=== PATIENT | male | born 1975 | race Caucasian/White ===

== ENCOUNTER 2017-08-02 13:14 | Emergency (ER) | payer BC ==
[~2017-08-02] VITALS: Ht 185.4 cm; Wt 113.9 kg
[2017-08-02 13:25] VITALS: Ht 185.4 cm; Wt 113.9 kg
[2017-08-02] MEDS ORDERED: KETOROLAC TROMETHAMINE 30 MG/ML VIAL IV STA (13:57)
[2017-08-02] MEDS ORDERED: ACETAMINOPHEN 500 MG TAB PO STA (13:57)
[2017-08-02] MEDS ORDERED: SODIUM CHLORIDE 0.9% 1000ML 1,000 ML IV ONE (14:00)
--- NOTE | 2017-08-02 14:02 | EMERGENCY ROOM VISIT NOTE ---
History First contact with patient: 13:35 Chief Complaint: FLU LIKE SX Stated Complaint: FLU History of Present Illness The patient is a 42 year old male who presents to the Emergency Room with complaints of flulike symptoms for approximately 1 week. The patient reports a high fever of 103.1F, body aches, headache, eye sensitivity, nausea with 1 episode of vomiting. He denies any sick contacts. He denies any known tick bites, but spends a lot of time outdoors. No significant cough. Bowel movements have been normal. He denies any abdominal pain. He was seen at [facility] earlier this week. A full workup was performed. He was told that this was likely a viral illness and had to run its course. Been trying Tylenol and ibuprofen with minimal relief of his symptoms. Review of Systems 10 system review performed and negative unless noted in HPI or below Past Medical/Surgical History Hypertension Social History Smoking Status: Current Every Day Smoker Alcohol Use: occasionally Marital Status: Housing Status: lives with family Current/Historical Medications Scheduled Citalopram (Citalopram Hydrobromide), 1 TAB PO DAILY Doxycycline Hyclate (Vibramycin), 100 MG PO BID Oxycodone/Acetaminophen 5MG/325MG (Percocet 5MG/325MG), 1 TAB PO QID Scheduled PRN Oxycodone/Acetaminophen 5MG/325MG (Percocet 5MG/325MG), 1-2 TABS PO Q4 PRN for Pain Miscellaneous Medications Acetaminophen (Tylenol), 325 MG PO Lisinopril (Prinivil), 20 MG PO Trazodone Hcl (Trazodone), 100 MG PO Physical Exam Vital Signs Date Time Temp Pulse Resp B/P (MAP) Pulse Ox O2 Delivery O2 Flow Rate FiO2 08/02/17 17:16 84 18 127/67 97 08/02/17 15:08 37.4 88 18 108/53 94 Room Air 08/02/17 13:25 37.8 121 22 140/79 94 Room Air Physical Exam VITALS: Vitals are noted on the nurse's note and reviewed by myself. Vital signs stable. GENERAL: 42-year-old male, acutely ill in appearance SKIN: The skin was without rashes, erythema, edema, or bruising. HEAD: Normocephalic atraumatic. EYES: Pupils equal round and reactive to light and accommodation. Conjunctivae without injection, sclerae without icterus. Extraocular movements intact. NOSE: Patent, turbinates without inflammation or discharge. No sinus tenderness. MOUTH: Mucous membranes slightly dry. Tonsils are not enlarged. Pharynx without erythema or exudate. Uvula midline. Airway patent. Tongue does not deviate. NECK: Supple without nuchal rigidity. No lymphadenopathy. Cervical spine is nontender. No JVD. HEART: Tachycardic, regular rhythm without murmurs gallops or rubs. LUNGS: Clear to auscultation bilaterally without wheezes, rales or rhonchi. No accessory muscle use. ABDOMEN: Positive bowel sounds x 4.Soft, nontender, without organomegaly. No guarding or rebound tenderness. MUSCULOSKELETAL: No muscle atrophy, erythema, or edema noted. Strength 5/5 throughout. NEURO: Patient was alert and oriented to person place and time. Normal sensation to touch. No focal neurological deficits. Medical Decision & Procedures ER Provider Diagnostic Interpretation: Chest x-ray IMPRESSION: Minimal parenchymal infiltrate left base. The above report was generated using voice recognition software. It may contain grammatical, syntax or spelling errors. Electronically signed by: Con Hastings M.D. 08/02/2017 2:21 PM Dictated Date/Time: 08/02/2017 2:[address] head without contrast Patient Name: OZZY PEARL Unit Number: [id number] Dictated: 08/02/171609 Transcribed: 08/02/17 161 MS Printed Date/Time: [~ rep prt dt]/[~ rep prt tm] [~ rep ct labl] - [~ rep ct ivnm] [facility] [place] [address] Dictated: 08/02/171609 Transcribed: 08/02/17 1610 MS Printed Date/Time: [~ rep prt dt]/[~ rep prt tm] [~ rep ct labl] - [~ rep ct ivnm] Impression: No acute intracranial abnormality. The above report was generated using voice recognition software. It may contain grammatical, syntax or spelling errors. Electronically signed by: Con Hastings M.D. 08/02/2017 4:10 PM Dictated Date/Time: 08/02/2017 4:10 PM The status of this report is Signed. Draft = Not yet reviewed or approved by Radiologist. Signed = Reviewed and approved by Radiologist. <AttendingPhy></AttendingPhy> <FamilyPhy>Preet Cox PA-C</FamilyPhy> < PrimaryPhy>Preet Cox PA-C</PrimaryPhy> <UnitNumber>[id number]</ UnitNumber> <VisitNumber>[id number]</VisitNumber> <PatientName>OZZY PEARL</ PatientName> <DateOfBirth>1975</DateOfBirth> <Location>C.[facility]</Location> < ServiceDate>08/02/17</ServiceDate> <MNE>ESINDI</MNE> <OrderingPhy>Keesha Chapin PA-C</OrderingPhy> <OrderingPhyMNE>f rep ord dr coulter</OrderingPhyMNE> < DictatingPhyMNE>f rep dict dr coulter</DictatingPhyMNE> <CCListMNE>f rep ct mne</ CCListMNE> <AdmittingPhyMNE>f pt admit dr coulter</AdmittingPhyMNE> <AttendingPhyMNE >f pt attend dr coulter</AttendingPhyMNE> <ConsultingPhyMNE>f pt consult dr coulter</ConsultingPhyMNE> <FamilyPhyMNE>f pt fam dr coulter</FamilyPhyMNE> <OtherPhyMNE>f pt other dr coulter</OtherPhyMNE> < PrimaryPhyMNE>f pt prim care dr coulter</PrimaryPhyMNE> <ReferringPhyMNE>f pt referring dr coulter</ReferringPhyMNE> Laboratory Results 08/02/17 14:18 Red Blood Count 4.94, Mean Corpuscular Volume 83.4, Mean Corpuscular Hemoglobin 30.0, Mean Corpuscular Hemoglobin Concent 35.9, Mean Platelet Volume 11.7, Neutrophils (%) (Auto) 60.4, Lymphocytes (%) (Auto) 24.5, Monocytes (%) (Auto) 9.3, Eosinophils (%) (Auto) 3.9, Basophils (%) (Auto) 1.4, Neutrophils # (Auto) 2.66, Lymphocytes # (Auto) 1.08, Monocytes # (Auto) 0.41, Eosinophils # (Auto) 0.17, Basophils # (Auto) 0.06 08/02/17 14:18 Test 08/02/17 14:18 08/02/17 14:30 White Blood Count 4.40 K/uL (4.8-10.8) Red Blood Count 4.94 M/uL (4.7-6.1) Hemoglobin 14.8 g/dL (14.0-18.0) Hematocrit 41.2 % (42-52) Mean Corpuscular Volume 83.4 fL (80-100) Mean Corpuscular Hemoglobin 30.0 pg (25-34) Mean Corpuscular Hemoglobin Concent 35.9 g/dl (32-36) Platelet Count 158 K/uL (130-400) Mean Platelet Volume 11.7 fL (7.4-10.4) Neutrophils (%) (Auto) 60.4 % Lymphocytes (%) (Auto) 24.5 % Monocytes (%) (Auto) 9.3 % Eosinophils (%) (Auto) 3.9 % Basophils (%) (Auto) 1.4 % Neutrophils # (Auto) 2.66 K/uL (1.4-6.5) Lymphocytes # (Auto) 1.08 K/uL (1.2-3.4) Monocytes # (Auto) 0.41 K/uL (0.11-0.59) Eosinophils # (Auto) 0.17 K/uL (0-0.5) Basophils # (Auto) 0.06 K/uL (0-0.2) RDW Standard Deviation 38.5 fL (36.4-46.3) RDW Coefficient of Variation 12.8 % (11.5-14.5) Immature Granulocyte % (Auto) 0.5 % Immature Granulocyte # (Auto) 0.02 K/uL (0.00-0.02) Anion Gap 7.0 mmol/L (3-11) Est Creatinine Clear Calc Drug Dose 111.3 ml/min Estimated GFR () 92.1 Estimated GFR (Non- 79.5 BUN/Creatinine Ratio 9.3 (10-20) Calcium Level 8.9 mg/dl (8.5-10.1) Total Bilirubin 0.6 mg/dl (0.2-1) Aspartate Amino Transf (AST/SGOT) 61 U/L (15-37) Alanine Aminotransferase (ALT/SGPT) 142 U/L (12-78) Alkaline Phosphatase 71 U/L (45-117) Total Protein 6.9 gm/dl (6.4-8.2) Albumin 3.4 gm/dl (3.4-5.0) Globulin 3.5 gm/dl (2.5-4.0) Albumin/Globulin Ratio 1.0 (0.9-2) Lyme Disease IgG Antibody NEG (NEG) Influenza Type A (RT-PCR) Neg for Influ A (NEG) Influenza Type B (RT-PCR) Neg for Influ B (NEG) Medications Administered Medications (Trade) Dose Ordered Sig/Patti Route Start Time Stop Time Status Last Admin Dose Admin Sodium Chloride 1,000 ml @ 999 mls/hr Q1H1M ONCE IV 08/02/17 14:00 08/02/17 15:00 DC 08/02/17 14:25 999 MLS/HR Morphine Sulfate (MoRPHine SULFATE INJ) 4 mg Q1H PRN IV 08/02/17 14:00 08/02/17 17:50 DC 08/02/17 15:53 4 MG Acetaminophen (Tylenol Tab) 1,000 mg NOW STAT PO 08/02/17 13:57 08/02/17 14:06 DC 08/02/17 14:26 1,000 MG Ketorolac Tromethamine (Toradol Inj) 30 mg NOW STAT IV 08/02/17 13:57 08/02/17 14:06 DC 08/02/17 14:26 30 MG Ceftriaxone Sodium 1 gm/ Dextrose 50 ml @ 100 mls/hr ONE STAT IV 08/02/17 15:43 08/02/17 16:12 DC 08/02/17 16:20 100 MLS/HR Doxycycline Hyclate (Vibramycin Cap) 100 mg NOW STAT PO 08/02/17 15:43 08/02/17 15:44 DC 08/02/17 15:50 100 MG ED Course Patient was seen and examined Vital signs including blood pressure were reviewed medications list was verified with patient Labs were obtained, and a saline lock was established The patient was medicated with Toradol, morphine and Tylenol. He was hydrated with 1 L of normal saline. The patient was reassessed. He was feeling slightly better. We discussed his workup. He voiced understanding. The case was also discussed with my supervising physician A CT of the head was performed and reviewed The patient was given 1 g of ceftriaxone IV. He was also given 1 dose of doxycycline. I reviewed discharge instructions the patient. They voiced understanding and had no further questions. Medical Decision Differential diagnosis: Bronchitis, pneumonia, strep pharyngitis, viral pharyngitis, influenza , Lyme disease, ehrlichiosis, other viral syndrome This patient is a 42-year-old male that presents to emergency department with severe headache, body aches and fever. On exam, he was uncomfortable in appearance. He was not toxic. There are no signs of nuchal rigidity. His workup reveals a positive Lyme screen. The patient reports spending a lot of time outdoors. He did not have any known tick bites. I believe he likely has disseminated Lyme disease. The patient's vital signs are stable. I believe he is stable to be discharged home. The patient was given 1 dose of ceftriaxone in the emergency department. He was given a 21 day course of doxycycline, and instructed to follow-up with his primary care physician within the next 2 days for recheck. He agrees to return to the emergency department with any new, worsening or concerning symptoms. Of note, the patient also possibly had a left infiltrate per x-ray. He did not have any significant productive cough. Doxycycline should be adequate coverage for mild community-acquired pneumonia. This chart was completed in part utilizing [employer] Speech Voice Recognition software. Attempts were made to minimize the grammatical errors, random word insertions, pronoun errors and incomplete sentences. Any formal questions or concerns about the content, text or information contained within the body of this dictation should be directly addressed to the provider for clarification. Medication Reconcilliation Current Medication List: was personally reviewed by me Blood Pressure Screening Patient's blood pressure: Normal blood pressure Impression Primary Impression: Disseminated Lyme disease Departure Information Dispostion Home / Self-Care Condition FAIR Prescriptions Oxycodone/Acetaminophen 5MG/325MG (PERCOCET 5MG/325MG) Tab 1-2 TABS PO Q4 Y for Pain, #15 TAB For Initial Treatment Prov: Keesha Chapin PA-C 08/02/17 Doxycycline Hyclate (VIBRAMYCIN) 100 Mg Cap 100 MG PO BID for 21 Days, #42 CAP Prov: Keesha Chapin PA-C 08/02/17 Referrals Preet Cox PA-C (PCP) Patient Instructions ED Lyme Disease, My [facility] Additional Instructions You were evaluated in the emergency department for body aches and fever. Thisw is likely due to Lyme disease. Please take the entire course of antibiotics. Please take this medication with food. It is very important to have close follow-up with your primary care physician within the next 2-3 days for recheck. Ibuprofen 600 mg every 6 hours Percocet 1-2 tabs every 4 hours for severe pain. Do not drink alcohol or drive while taking this medication. This may be taken with ibuprofen, but avoid Tylenol. Please do not hesitate to return to the emergency department with a new, worsening or concerning symptoms
--- NOTE | 2017-08-02 14:22 | DIAGNOSTIC IMAGING REPORT ---
CHEST ONE VIEW PORTABLE CLINICAL HISTORY: fever dyspnea COMPARISON STUDY: No previous studies for comparison. FINDINGS: Minimal parenchymal infiltrate left base. Lungs otherwise are clear. Diaphragms are smooth. Costophrenic angles are sharp. IMPRESSION: Minimal parenchymal infiltrate left base. The above report was generated using voice recognition software. It may contain grammatical, syntax or spelling errors. Electronically signed by: Con Hastings M.D. 08/02/2017 2:21 PM Dictated Date/Time: 08/02/2017 2:20 PM
[2017-08-02] MEDS: MoRPHine SULFATE 4 MG/ML 1 ML CARP\\VIAL IV PRN ×2 (14:28→15:53)
[2017-08-02 14:39] LABS: BASO % 1.4 %; BASO ABS # 0.06 K/uL (0-0.2); COMPLETE YES; EOS % 3.9 %; HEMATOCRIT 41.2 % (42-52); IG% 0.5 %; LYMPH % 24.5 %; LYMPH ABS # 1.08 K/uL (1.2-3.4); MEAN CELL VOLUME 83.4 fL (80-100); MEAN CORPUSCULAR HGB CONC 35.9 g/dl (32-36); MEAN PLATELET VOLUME 11.7 fL (7.4-10.4); MONO % 9.3 %; NEUT % 60.4 %; PLATELET COUNT 158 K/uL (130-400); RED BLOOD COUNT 4.94 M/uL (4.7-6.1)
[2017-08-02 14:54] LABS: BUN/CREATININE RATIO 9.3 (10-20); CALCIUM 8.9 mg/dl (8.5-10.1); CREATININE 1.12 mg/dl (0.60-1.40); POTASSIUM 3.6 mmol/L (3.5-5.1)
[2017-08-02 15:08] VITALS: TEMP 37.4
[2017-08-02] MEDS ORDERED: OXYC-57 PO ×2 (15:09→16:34)
[2017-08-02] MEDS ORDERED: CITA40TA4 PO (15:09)
[2017-08-02] MEDS ORDERED: TRAZ100T29 PO (15:09)
[2017-08-02] MEDS ORDERED: ACET-1311 PO (15:09)
[2017-08-02] MEDS ORDERED: LISI20TA3 PO (15:09)
[2017-08-02 15:28] LABS: LYME DISEASE AB IGG NEG (NEG)
[2017-08-02 15:30] LABS: LYME DISEASE AB IGM POS (NEG)
[2017-08-02 15:34] LABS: INFLUENZA A PCR Neg for Influ A (NEG); INFLUENZA B PCR Neg for Influ B (NEG)
[2017-08-02] MEDS ORDERED: CEFTRIAXONE SOD INJ 1 GM in DEXTROSE 5% ADD-VANTAGE 50ML 50 ML IV STA (15:43)
[2017-08-02] MEDS ORDERED: DOXYCYCLINE HYCLATE 100 MG CAP PO STA (15:43)
--- NOTE | 2017-08-02 16:11 | DIAGNOSTIC IMAGING REPORT ---
HEAD WITHOUT CONTRAST (CT) CT DOSE: 823.94 mGycm HISTORY: Pain. Mental status change. [place] eye pain fever TECHNIQUE: Multiaxial CT images of the head were performed without the use of intravenous contrast. A dose lowering technique was utilized adhering to the principles of ALARA. Comparison: None. Findings: The paranasal sinuses and mastoid air cells are clear. The calvarium and skull base are intact. The ventricles and sulci are within normal limits. There is no mass, hematoma, midline shift, or acute infarct. Impression: No acute intracranial abnormality. The above report was generated using voice recognition software. It may contain grammatical, syntax or spelling errors. Electronically signed by: Con Hastings M.D. 08/02/2017 4:10 PM Dictated Date/Time: 08/02/2017 4:10 PM
[2017-08-02] MEDS ORDERED: DOXY100C PO (16:33)
[2017-08-02 17:16] VITALS: BP 127/67; PULSE 84; O2SAT 97
[2017-08-04 20:27] LABS: EHRLICHIA CHAFF IGG AB <1:64 (<1:64); EHRLICHIA CHAFF IGM AB <1:20 (<1:20)
== END 2017-08-02 17:18 | disposition home or self-care (01) ==
LOC: C.EDB 13:17 → C.EDC 17:18
DX: A69.20 Lyme disease, unspecified (principal); F17.210 Nicotine dependence, cigarettes, uncomplicated; Z79.899 Other long term (current) drug therapy

== ENCOUNTER 2017-08-05 13:08 | Inpatient (IN) | payer BC ==
[~2017-08-05] VITALS: Ht 185.4 cm; Wt 114.5 kg
[~2017-08-05 13:08] MED LIST: ACET-1311 PO; CITA40TA4 PO; DOXY100C PO; LISI20TA3 PO; OXYC-57 PO; TRAZ100T29 PO
[2017-08-05] MEDS ORDERED: KETOROLAC TROMETHAMINE 30 MG/ML VIAL IV STA (13:37)
[2017-08-05] MEDS ORDERED: IBUP600T44 PO (13:52)
--- NOTE | 2017-08-05 14:02 | EMERGENCY ROOM VISIT NOTE ---
ED Visit Note First contact with patient: 13:22 The patient was seen and examined with Linda Hastings PA-C. I agree with the history, physical and findings. Please see the note for disposition and details. The patient is quite uncomfortable. He has some meningeal findings. I did discuss lumbar puncture. He underwent lumbar puncture and he did have a mildly elevated opening pressure, mild elevation of his protein and mild elevation of his white blood cell count. He has been treated with Rocephin and is currently on doxycycline. There were no organisms seen. A TRAFFIC ATTENDANT Lyme test was sent. He still has his Western blot pending. The patient was given 2 g of IV Rocephin. He does not feel well to go home given his symptoms and his distance from the hospital. I discussed further evaluation and management in the hospital. I did consult with neurology who recommended discussion with infectious disease. I did discuss the case with Dr. Delgado and he did not recommend treating with additional antibiotics regarding other possible sources of TRAFFIC ATTENDANT infection. He felt that the Lyme was a likely source of his overall syndrome. I discussed the case with Dr. Beckford for evaluation and management in the hospital. She evaluated the patient in the Emergency Room and he was admitted for further treatment. Lumbar Puncture Indication: Headache, fevers, stiff neck . Verbal consent was obtained after the risks and benefits were explained, including but not limited to headache, bleeding/clotting, scarring, infection, pain, and bone/joint/nerve damage. At this time, the risks of the procedure are less than the risks of NOT performing the procedure. A time out was taken and the correct patient and site identified. The patient was placed in the left lateral decubitus position and the back was prepped with betadine and draped in the standard fashion. The L3 intervertebral space was identified, anesthetized locally with 1% lidocaine without epinephrine, and the spinal needle was inserted through the skin with the bevel parallel to the dural fibers. The needle was carefully advanced into the lumbar cistern and 4 tubes of clear CSF was obtained. Opening pressure was 25 mmHg. The stylet was replaced and the needle was removed. A bandaid was placed and the patient was placed in the supine position. The patient tolerated the procedure well and there were no complications.
[2017-08-05 14:10] LABS: MEAN CELL VOLUME 84.2 fL (80-100); MEAN CORPUSCULAR HEMOGLOBIN 29.6 pg (25-34); MEAN CORPUSCULAR HGB CONC 35.1 g/dl (32-36); MEAN PLATELET VOLUME 10.8 fL (7.4-10.4); PLATELET COUNT 227 K/uL (130-400); RED BLOOD COUNT 4.63 M/uL (4.7-6.1); WHITE BLOOD COUNT 7.33 K/uL (4.8-10.8)
[2017-08-05] MEDS ORDERED: ONDANSETRON INJ 2 MG/ML 2 ML VIAL IV STA (14:10)
[2017-08-05] MEDS ORDERED: MoRPHine SULFATE 10 MG/ML CARP/VIAL IV STA (14:10)
[2017-08-05 14:27] LABS: BUN/CREATININE RATIO 12.8 (10-20); CALCIUM 8.3 mg/dl (8.5-10.1); CREATININE 0.94 mg/dl (0.60-1.40); POTASSIUM 3.5 mmol/L (3.5-5.1)
[2017-08-05 14:38] LABS: BASO ABS # 0.07 K/uL (0-0.2); BASOPHIL % 0.9 % (0-2); COMPLETE YES; EOSINOPHIL % 1.8 %; LYMPH ABS # 0.45 K/uL (1.2-3.4); LYMPHOCYTE % 6.2 %; META ABS # 0.07 K/uL (0-0); METAMYELOCYTE % 0.9 %; MYELOCYTE % 0.9 %; VARIANT LYM ABS # 1.82 K/uL; VARIANT LYMPHOCYTE % 24.8 %
[2017-08-05 16:04] LABS: CSF TOTAL PROTEIN 46.9 mg/dl (15.0-45.0)
[2017-08-05 16:09] LABS: CSF APPEARANCE CLEAR; CSF COLOR COLORLESS; CSF XANTHOCHROMIC NO XANTHOCHROMIA
[2017-08-05] MEDS ORDERED: CEFTRIAXONE SOD INJ 2,000 MG in DEXTROSE 5% 50ML 50 ML IV STA (16:23)
[2017-08-05 17:14] LABS: CSF CHEMISTRY TUBE # 2
--- NOTE | 2017-08-05 17:42 | EMERGENCY ROOM VISIT NOTE ---
History First contact with patient: 13:22 Chief Complaint: HEADACHE Stated Complaint: HEADACHE AND FEVER History of Present Illness The patient is a 42 year old male who presents to the Emergency Room with complaints of frontal headache and fever. The patient states that he was seen here on August 02 and diagnosed with Lyme's disease. He has taken 2-1/2 days of the doxycycline. The patient states last night he was very hot. His temperature this morning was 102. He took Motrin at 11:30 AM. The patient also is complaining of a headache across her forehead and behind his eyes. Patient denies any neck pain. The patient denies any known tick bites. The patient denies any chest pain or shortness of breath. The patient states he feels achy all over. Review of Systems 10 system review was performed and was negative unless stated otherwise history of present illness. Past Medical/Surgical History Medical Problems: (1) Fever Social History Smoking Status: Former Smoker Alcohol Use: occasionally Marital Status: Housing Status: lives with family Current/Historical Medications Scheduled Citalopram (Citalopram Hydrobromide), 1 TAB PO HS Doxycycline Hyclate (Vibramycin), 100 MG PO BID Lisinopril (Prinivil), 20 MG PO HS Oxycodone/Acetaminophen 5MG/325MG (Percocet 5MG/325MG), 1 TAB PO QID Trazodone Hcl (Trazodone), 100 MG PO HS Scheduled PRN Ibuprofen (Motrin), 600 MG PO Q6H PRN for Pain Oxycodone/Acetaminophen 5MG/325MG (Percocet 5MG/325MG), 1-2 TABS PO Q4 PRN for Pain Physical Exam Vital Signs Date Time Temp Pulse Resp B/P (MAP) Pulse Ox O2 Delivery O2 Flow Rate FiO2 08/05/17 16:22 66 15 121/66 95 Room Air 08/05/17 14:57 66 16 134/74 94 Room Air 08/05/17 14:15 69 16 134/74 96 Room Air 08/05/17 13:13 36.3 90 18 137/88 95 Room Air Physical Exam GENERAL: 42-year-old male appears in no acute distress. MENTAL Status: Alert and oriented 3. EYES: PERRLA. EOMs intact. EARS: Canals clear. TMs without fluid level noted. NOSE: Nasal mucosa with erythema and engorgement. SINUSES: Nontender to percussion throughout. NECK: Supple, no lymphadenopathy noted. No carotid bruits noted. LUNGS: Clear auscultation without wheezes rales or rhonchi. CARDIAC: Regular rate and rhythm without murmur. Pulses is full and equal throughout. CERVICAL SPINE: Patient is nontender to palpation over the spinous processes in the paravertebral region. The patient is able to touch chin to his chest without difficulty. NEURO:Cranial nerves two through 12 intact. Cerebellar function intact with [id number]. Fine motor intact with alternating finger motions. Medical Decision & Procedures Laboratory Results 08/05/17 13:50 Red Blood Count 4.63, Mean Corpuscular Volume 84.2, Mean Corpuscular Hemoglobin 29.6, Mean Corpuscular Hemoglobin Concent 35.1, Mean Platelet Volume 10.8 08/05/17 13:50 Test 08/05/17 13:50 08/05/17 15:39 White Blood Count 7.33 K/uL (4.8-10.8) Red Blood Count 4.63 M/uL (4.7-6.1) Hemoglobin 13.7 g/dL (14.0-18.0) Hematocrit 39.0 % (42-52) Mean Corpuscular Volume 84.2 fL (80-100) Mean Corpuscular Hemoglobin 29.6 pg (25-34) Mean Corpuscular Hemoglobin Concent 35.1 g/dl (32-36) Platelet Count 227 K/uL (130-400) Mean Platelet Volume 10.8 fL (7.4-10.4) RDW Standard Deviation 39.4 fL (36.4-46.3) RDW Coefficient of Variation 13.0 % (11.5-14.5) Neutrophils % (Manual) 61.0 % Lymphocytes % (Manual) 6.2 % Variant Lymphocytes % (manual) 24.8 % Monocytes % (Manual) 3.5 % Eosinophils % (Manual) 1.8 % Basophils % (Manual) 0.9 % (0-2) Metamyelocytes % 0.9 % Myelocytes % 0.9 % Neutrophils # (Manual) 4.47 K/uL (1.4-6.5) Total Absolute Neutrophils 4.47 K/uL (1.4-6.5) Lymphocytes # (Manual) 0.45 K/uL (1.2-3.4) Absolute Variant Lymphocytes 1.82 K/uL Total Absolute Lymphocytes 2.27 K/uL (1.2-3.4) Monocytes # (Manual) 0.26 K/uL (0.11-0.59) Eosinophils # (Manual) 0.13 K/uL (0-0.5) Basophils # (Manual) 0.07 K/uL (0-0.2) Metamyelocytes # 0.07 K/uL (0-0) Myelocytes # 0.07 K/uL (0-0) Red Blood Cell Morphology Unremarkable Anion Gap 2.0 mmol/L (3-11) Est Creatinine Clear Calc Drug Dose 132.6 ml/min Estimated GFR () 113.8 Estimated GFR (Non- 98.2 BUN/Creatinine Ratio 12.8 (10-20) Calcium Level 8.3 mg/dl (8.5-10.1) CSF Color COLORLESS CSF Appearance CLEAR CSF WBC 6 /uL (0-5) CSF RBC 6 /uL (0) CSF Xanthrochromic NO XANTHOCHROMIA CSF Cell Count Tube # 4 CSF Polynuclear WBCs (%) % CSF Chemistry Tube # 2 CSF Glucose 57 mg/dl (40-70) CSF Total Protein 46.9 mg/dl (15.0-45.0) Medications Administered Medications (Trade) Dose Ordered Sig/Patti Route Start Time Stop Time Status Last Admin Dose Admin Ketorolac Tromethamine (Toradol Inj) 30 mg NOW STAT IV 08/05/17 13:37 08/05/17 13:38 DC 08/05/17 13:54 30 MG Morphine Sulfate (MoRPHine SULFATE INJ) 6 mg NOW STAT IV 08/05/17 14:10 08/05/17 14:12 DC 08/05/17 14:17 6 MG Ondansetron HCl (Zofran Inj) 4 mg NOW STAT IV 08/05/17 14:10 08/05/17 14:12 DC 08/05/17 14:16 4 MG Ceftriaxone Sodium 2000 mg/ Dextrose 70 ml @ 100 mls/hr ONE STAT IV 08/05/17 16:23 08/05/17 17:04 DC 08/05/17 16:41 100 MLS/HR ED Course The patient was evaluated. The patient's EMR medication list were reviewed. The patient had a CT of the head on August 02 which was normal. He also had a chest x-ray revealed which revealed a minimal parenchymal infiltrate at the left base. Lyme test is still pending. He was initially put negative for IgG and positive for IgM. Bands are pending. IV access was obtained. CBC and differential and renal profile was ordered. The patient was given Toradol 30 mg IV for pain. On reevaluation he was still complaining of pain and therefore was given morphine 6 mg IV for pain. Labs were reviewed and were unremarkable. Spinal tap was performed byDr. Long please see his note for procedure. Spinal fluid came back with slightly elevated protein and WBCs but the fluid was clear.Dr. Long spoke with neurology and infectious disease about the patient. Dr. Long spoke with the patient about the findings and was given the option of either staying or going home. The patient elected to be admitted. Hospitals was consulted. Medical Decision Differential diagnosis include Lyme meningitis, acute sinusitis, Lyme's disease , sepsis, pneumonia [place] Drug Monitoring Program Search Results: patient reviewed within database Medication Reconcilliation Current Medication List: was personally reviewed by dc Blood Pressure Screening Patient's blood pressure: Normal blood pressure Impression Primary Impression: Headache Additional Impressions: Fever Lyme disease Departure Information Dispostion Being Evaluated By Hospitalist Condition GOOD Referrals Preet Cox PA-C (PCP) Patient Instructions My [facility] Problem Qualifiers Primary Impression: Headache Headache type: unspecified Headache chronicity pattern: acute headache Intractability: not intractable Qualified Codes: R51 - Headache Additional Impressions: Fever Fever type: unspecified Qualified Codes: R50.9 - Fever, unspecified
[2017-08-05] MEDS ORDERED: ONDANSETRON INJ 2 MG/ML 2 ML VIAL IV PRN (17:45)
[2017-08-05] MEDS ORDERED: ACETAMINOPHEN 325 MG TAB PO PRN (17:45)
[2017-08-05] MEDS ORDERED: POLYETHYLENE (MIRALAX) 17 GM PACK PO PRN (17:45)
[2017-08-05] MEDS ORDERED: CLX/20 (17:49)
--- NOTE | 2017-08-05 18:09 | DIAGNOSTIC IMAGING REPORT ---
CHEST 2 VIEWS ROUTINE HISTORY: 42 years-old Male ? L base infiltrate on prior portable film follow-up study to assess possible left lung base opacity COMPARISON: Chest radiograph 08/02/2017 TECHNIQUE: PA and lateral views of the chest FINDINGS: Cardiac silhouette is moderately enlarged. Mild pulmonary vascular congestion without overt pulmonary edema. There is no pneumothorax, pleural effusion or focal airspace consolidation. There is improved aeration of the left lung base from comparison. Bones of the chest appear grossly intact. IMPRESSION: 1. Moderate cardiomegaly without overt pulmonary edema. 2. No lobar airspace consolidation to suggest pneumonia. The above report was generated using voice recognition software. It may contain grammatical, syntax or spelling errors. Electronically signed by: Rodolfo Bauman M.D. 08/05/2017 6:08 PM Dictated Date/Time: 08/05/2017 6:06 PM
[2017-08-05] MEDS ORDERED: NICOTINE 21 MG/24 HR TDSY TD PRN (18:15)
--- NOTE | 2017-08-05 18:21 | History and Physical ---
History & Physical Date & Time of Service: Aug 05, 2017 at 17:50 Chief Complaint: Headache And Fever Primary Care Physician: Preet Cox PA-C History of Present Illness Source: patient, spouse, clinic records, hospital records 42 yo M who presents with 10 days of high fevers around 102F associated with severe body aches, chills, headaches and night sweats. He was seen at [facility] ER and was told he had a viral illness. Reported mono test and strep tests were negative. The patient denies any sick contacts, sore throat, coughing or SOB. He denies any travel in the last 6 months. 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 This was approx 2-3 weeks before his symptom onset. He denies any tick bites that are known. He was then seen at [facility] ER on 08/02 with the same symptoms and was found to be +for Lyme disease. He was given Rocephin 1gm and started on Doxycycline BID x 21 days. He states that his fevers and chills have not improved and he is still feeling terribly. In the ER, an LP was performed revealing minimal WBC count, gluc 57 and prot 50 with preliminary negative gram stain. Opening pressure was 25 mmHg. He was given Rocephin 2gm and the case was discussed with Dr. Delgado who reportedly recommended nothing more than this. Dr. Connor also sent off a Lyme CSF PCR and per discussions I was not a part of, the consensus between physicians was this was systemic Lyme instead of CSF Lyme. The patient denies any periods of confusion. Past Medical/Surgical History Medical Problems: (1) Depression Status: Chronic (2) HTN (hypertension) Status: Chronic (3) Tobacco abuse Status: Chronic Family History FH: heart attack FATHER (48 yo) Social History Smoking Status: Current Every Day Smoker Smokeless Tobacco Use: No Alcohol Use: occasionally Drug Use: none Marital Status: Housing status: lives with significant other Occupational Status: employed Immunizations History of Tetanus Vaccine?: Yes Tetanus Immunization Date: Sep 04, 2005 History of Pneumococcal: Yes Pneumococcal Date: May 20, 2011 Multi-Drug Resistant Organisms History of MDRO: No Allergies Coded Allergies: No Known Allergies (Unverified , 08/05/17) Home Medications Scheduled Citalopram (Citalopram Hydrobromide), 20 MG DAILY Doxycycline Hyclate (Vibramycin), 100 MG PO BID Lisinopril (Prinivil), 20 MG PO HS Oxycodone/Acetaminophen 5MG/325MG (Percocet 5MG/325MG), 1 TAB PO QID Trazodone Hcl (Trazodone), 100 MG PO HS Scheduled PRN Ibuprofen (Motrin), 600 MG PO Q6H PRN for Pain Review of Systems At least ten systems were reviewed and negative except as indicated in HPI. Constitutional: + fever, + chills, + sweats, + fatigue, No weight loss Eyes: No worsening of vision, No diplopia ENT: No sore throat Respiratory: No cough, No shortness of breath Cardiovascular: No chest pain Abdomen: No pain, No nausea, No vomiting, No diarrhea, No constipation, No GI bleeding Musculoskeletal: No joint pain, No muscle pain Genitourinary - Male: No hematuria, No dysuria, No urinary frequency, No urinary urgency Neurologic: No weakness, No numbness/tingling Integumentary: No rash Allergic / Immunologic: No food allergies Physical Exam Vital Signs Date Time Temp Pulse Resp B/P (MAP) Pulse Ox O2 Delivery O2 Flow Rate FiO2 08/05/17 16:22 66 15 121/66 95 Room Air 08/05/17 14:57 66 16 134/74 94 Room Air 08/05/17 14:15 69 16 134/74 96 Room Air 08/05/17 13:13 36.3 90 18 137/88 95 Room Air General Appearance: WD/WN, + mild distress Head: normocephalic, atraumatic Eyes: normal inspection, PERRL, sclerae normal ENT: hearing grossly normal, pharynx normal Neck: supple, trachea midline Respiratory/Chest: chest non-tender, lungs clear, normal breath sounds, no respiratory distress, no accessory muscle use Cardiovascular: regular rate, rhythm, no edema, no gallop, no JVD, no murmur, normal peripheral pulses Abdomen/GI: normal bowel sounds, non tender, soft, no organomegaly Back: normal inspection Extremities/Musculoskelatal: normal inspection, normal range of motion, non- tender Neurologic/Psych: no motor/sensory deficits, alert, normal mood/affect, oriented x 3, + abnormal cerebellar tests Skin: normal color, warm/dry, no rash Diagnostics Laboratory Results 08/05/17 13:50 Red Blood Count 4.63, Mean Corpuscular Volume 84.2, Mean Corpuscular Hemoglobin 29.6, Mean Corpuscular Hemoglobin Concent 35.1, Mean Platelet Volume 10.8 08/05/17 13:50 Test 08/05/17 13:50 08/05/17 15:39 08/05/17 17:35 08/05/17 18:06 White Blood Count 7.33 K/uL (4.8-10.8) Red Blood Count 4.63 M/uL (4.7-6.1) Hemoglobin 13.7 g/dL (14.0-18.0) Hematocrit 39.0 % (42-52) Mean Corpuscular Volume 84.2 fL (80-100) Mean Corpuscular Hemoglobin 29.6 pg (25-34) Mean Corpuscular Hemoglobin Concent 35.1 g/dl (32-36) Platelet Count 227 K/uL (130-400) Mean Platelet Volume 10.8 fL (7.4-10.4) RDW Standard Deviation 39.4 fL (36.4-46.3) RDW Coefficient of Variation 13.0 % (11.5-14.5) Neutrophils % (Manual) 61.0 % Lymphocytes % (Manual) 6.2 % Variant Lymphocytes % (manual) 24.8 % Monocytes % (Manual) 3.5 % Eosinophils % (Manual) 1.8 % Basophils % (Manual) 0.9 % (0-2) Metamyelocytes % 0.9 % Myelocytes % 0.9 % Neutrophils # (Manual) 4.47 K/uL (1.4-6.5) Total Absolute Neutrophils 4.47 K/uL (1.4-6.5) Lymphocytes # (Manual) 0.45 K/uL (1.2-3.4) Absolute Variant Lymphocytes 1.82 K/uL Total Absolute Lymphocytes 2.27 K/uL (1.2-3.4) Monocytes # (Manual) 0.26 K/uL (0.11-0.59) Eosinophils # (Manual) 0.13 K/uL (0-0.5) Basophils # (Manual) 0.07 K/uL (0-0.2) Metamyelocytes # 0.07 K/uL (0-0) Myelocytes # 0.07 K/uL (0-0) Red Blood Cell Morphology Unremarkable Anion Gap 2.0 mmol/L (3-11) Est Creatinine Clear Calc Drug Dose 132.6 ml/min Estimated GFR () 113.8 Estimated GFR (Non- 98.2 BUN/Creatinine Ratio 12.8 (10-20) Calcium Level 8.3 mg/dl (8.5-10.1) CSF Color COLORLESS CSF Appearance CLEAR CSF WBC 6 /uL (0-5) CSF RBC 6 /uL (0) CSF Xanthrochromic NO XANTHOCHROMIA CSF Cell Count Tube # 4 CSF Polynuclear WBCs (%) % CSF Chemistry Tube # 2 CSF Glucose 57 mg/dl (40-70) CSF Total Protein 46.9 mg/dl (15.0-45.0) Date/Time Source Procedure Growth Status 08/05/17 15:39 Cerebral Spinal Fluid Gram Stain - Preliminary Resulted 08/05/17 15:39 Cerebral Spinal Fluid CSF Culture Pending Resulted Results Past 24 Hours Test 08/05/17 13:50 08/05/17 15:39 08/05/17 17:35 Range/Units White Blood Count 7.33 4.8-10.8 K/uL Red Blood Count 4.63 4.7-6.1 M/uL Hemoglobin 13.7 14.0-18.0 g/dL Hematocrit 39.0 42-52 % Mean Corpuscular Volume 84.2 80-100 fL Mean Corpuscular Hemoglobin 29.6 25-34 pg Mean Corpuscular Hemoglobin Concent 35.1 32-36 g/dl Platelet Count 227 130-400 K/uL Mean Platelet Volume 10.8 7.4-10.4 fL RDW Standard Deviation 39.4 36.4-46.3 fL RDW Coefficient of Variation 13.0 11.5-14.5 % Neutrophils % (Manual) 61.0 % Lymphocytes % (Manual) 6.2 % Variant Lymphocytes % (manual) 24.8 % Monocytes % (Manual) 3.5 % Eosinophils % (Manual) 1.8 % Basophils % (Manual) 0.9 0-2 % Metamyelocytes % 0.9 % Myelocytes % 0.9 % Neutrophils # (Manual) 4.47 1.4-6.5 K/uL Total Absolute Neutrophils 4.47 1.4-6.5 K/uL Lymphocytes # (Manual) 0.45 1.2-3.4 K/uL Absolute Variant Lymphocytes 1.82 K/uL Total Absolute Lymphocytes 2.27 1.2-3.4 K/uL Monocytes # (Manual) 0.26 0.11-0.59 K/uL Eosinophils # (Manual) 0.13 0-0.5 K/uL Basophils # (Manual) 0.07 0-0.2 K/uL Metamyelocytes # 0.07 0-0 K/uL Myelocytes # 0.07 0-0 K/uL Red Blood Cell Morphology Unremarkable Sodium Level 134 136-145 mmol/L Potassium Level 3.5 3.5-5.1 mmol/L Chloride Level 100 98-107 mmol/L Carbon Dioxide Level 32 21-32 mmol/L Anion Gap 2.0 3-11 mmol/L Blood Urea Nitrogen 12 7-18 mg/dl Creatinine 0.94 0.60-1.40 mg/dl Est Creatinine Clear Calc Drug Dose 132.6 ml/min Estimated GFR () 113.8 Estimated GFR (Non- 98.2 BUN/Creatinine Ratio 12.8 10-20 Random Glucose 105 70-99 mg/dl Calcium Level 8.3 8.5-10.1 mg/dl CSF Color COLORLESS CSF Appearance CLEAR CSF WBC 6 0-5 /uL CSF RBC 6 0 /uL CSF Xanthrochromic NO XANTHOCHROMIA CSF Cell Count Tube # 4 CSF Polynuclear WBCs (%) % CSF Chemistry Tube # 2 CSF Glucose 57 40-70 mg/dl CSF Total Protein 46.9 15.0-45.0 mg/dl Microbiology Results 08/05/17 Gram Stain - Preliminary, Resulted 08/05/17 CSF Culture, Resulted Pending Normal EKG Impression Assessment and Plan 42 yom presents with persistent fevers, shaking chills, headache, night sweats and myalgias consistent with Lyme disease. 1. Fevers-persistent, likely 2/2 Lyme disease as Lyme IgM was positive 3 days ago. Cont Doxy and will switch to IV while initially hospitalized. Although there is no neck stiffness on exam, will cover him for bacterial meningitis per discussion with ID (by the ER doc) and cover him with Rocephin 2mg daily. Of note, gram stain was negative on preliminary reading. Although reports that mono was negative, will recheck this now. There is a possibility that he could have a tick borne viral coinfection for which the treatment would likely be supportive care. Will defer to ID for further workup. IVF overnight. Fioricet for headaches, Toradol for pain. Droplet precautions. Also repeated CXR after prior CXR on 08/02 revealed a L base infiltrate. Pt still denies respiratory symptoms but is a smoker. 2. HTN-controlled, cont home regimen Lisinopril 20mg PO daily 3. Depression/Anxiety-stable, cont Citalopram per home regimen. 4. Tobacco abuse-counseled to quit smoking, nicotine patch PRN . DVT proph-Lovenox. Full Code Dispo-telemetry [facility] Level of Care Telemetry Resuscitation Status FULL RESUSCITATION VTE Prophylaxis VTE Risk Assessment Done? Y/N: Yes Risk Level: Moderate Given or contraindicated: Enoxaparin (Lovenox)SQ
[2017-08-05 18:36] LABS: PROTHROMBIN TIME (PATIENT) 10.8 SECONDS (9.0-12.0)
[2017-08-05 18:45] VITALS: BP 148/97; PULSE 83; TEMP 36.7; O2SAT 99; Ht 185.4 cm; Wt 114.5 kg
[2017-08-05 19:34] VITALS: BP 145/85; PULSE 84; TEMP 36.9; O2SAT 96
[2017-08-05] MEDS: SODIUM CHLORIDE 0.9% 1000ML 1,000 ML IV SCH (19:41)
[2017-08-05] MEDS: DOXYCYCLINE IV 100 MG in DEXTROSE 5% 100ML 100 ML IV SCH (19:42)
[2017-08-05] MEDS ORDERED: IV FLUIDS COMPLETED PRN (19:45)
[2017-08-05 20:00] VITALS: O2SAT 99
[2017-08-05] MEDS: KETOROLAC TROMETHAMINE 30 MG/ML VIAL IV PRN (20:59)
[2017-08-05] MEDS ORDERED: INFLUENZA VIRUS QUAD VACCINE 0.5 ML SYR IM. ONE (21:00)
[2017-08-05] MEDS ORDERED: INFLUENZA ADMINISTRATION CHARGE ONE (21:00)
[2017-08-05 21:02] VITALS: TEMP 37.5
[2017-08-05] MEDS: TRAZODONE HCL 100 MG TAB PO SCH (21:26)
[2017-08-05] MEDS: LISINOPRIL 20 MG TAB PO SCH (21:26)
[2017-08-05] MEDS: CITALOPRAM 20 MG TAB PO SCH (21:27)
[2017-08-05 23:40] VITALS: BP 130/68; PULSE 73; TEMP 36.9; O2SAT 96
[2017-08-06] VITALS (10 sets, daily range): BP systolic 120–150; BP diastolic 66–86; PULSE 64–98; TEMP 36.8–37.5; O2SAT 93–99
[2017-08-06] MEDS: MoRPHine SULFATE 2 MG/ML CARP IV PRN ×3 (00:11→14:06)
[2017-08-06] MEDS: SODIUM CHLORIDE 0.9% 1000ML 1,000 ML IV SCH ×3 (04:11→21:36)
[2017-08-06] MEDS: BUTALBITAL/ACETAMIN/CAFFEINE TAB PO PRN (05:17)
[2017-08-06] MEDS ORDERED: INFLUENZA VIRUS QUAD VACCINE 0.5 ML SYR IM. ONE (07:45)
[2017-08-06] MEDS ORDERED: INFLUENZA ADMINISTRATION CHARGE ONE (07:45)
[2017-08-06] MEDS: DOXYCYCLINE IV 100 MG in DEXTROSE 5% 100ML 100 ML IV SCH ×2 (08:35→21:25)
[2017-08-06] MEDS ORDERED: ENOXAPARIN 40 MG/0.4 ML SYR SC SCH (09:00)
--- NOTE | 2017-08-06 09:44 | Progress Note ---
Progress Note Date of Service Aug 06, 2017. Progress Note ID Consut Dictated #[id number] A/P: 1. Lyme Disease -Continue abx, follow cultures, thank you
[2017-08-06] MEDS ORDERED: ALUMINUM/MAGNESIUM/SIMETH (MAALOX MAX) 30 ML UDC PO PRN (11:00)
[2017-08-06] MEDS ORDERED: CEFTRIAXONE SOD INJ 2,000 MG in DEXTROSE 5% 50ML 50 ML IV SCH (16:00)
[2017-08-06] MEDS: KETOROLAC TROMETHAMINE 30 MG/ML VIAL IV PRN (16:56)
[2017-08-06] MEDS ORDERED: OXYCODONE/ACETAMINOPHEN 7.5-325 TAB PO PRN (17:15)
[2017-08-06] MEDS ORDERED: HYDROmorphone INJ 1 MG/ML SYR IV PRN (17:15)
[2017-08-06] MEDS ORDERED: HYDROmorphone INJ 1 MG/ML SYR ONE (17:21)
--- NOTE | 2017-08-06 17:28 | Progress Note ---
Internal Med Progress Note Date of Service: Aug 06, 2017. Provider Documentation: SUBJECTIVE: complain of throbbing headache , specially around his left eye and frontal area has been afebrile since admission very frustrated that he is not feeling any better since admission , while on IV antibiotics has persisted myalgia ,weakness OBJECTIVE: Vital Signs-as noted below Exam: General-in distress, due to headache Eyes-sclera non icteric, pupillary reaction not checked as pt complains of photosensitivity ,prefers room to be dark ENT-moist oral mucosa , no sinus tenderness noted Neck-trachea midline , ,no carotid bruit Lungs-clear to auscultate ,no wheeze or rales Heart-regular S1/S2 Abdomen-soft, non tender Extremities-no lower ext edema , no calf tenderness Neuro-no focal neurological headache , persisted headache Lab data as noted below. ASSESSMENT & PLAN: LYME DISEASE : presented with intermittent fever , myalgia, headache for past > 1 week was treated with PO Doxycycline as out pt no improvement of symptom had lumber puncture CSF shows mild elevation of protein , 6 WBC Lyme Ig M positive PCR confirmation test sent appreciate input form ID pt will be treated empirically with IV Rocephin and Doxycycline change to oral agent in next 24-48 hrs as pt improves clinically -afebrile , improved headache , myalgia duration of abx tx will be per ID HEADACHE : -his clinical symptom more suggestive of Migraine headache /retro orbital pain behind one eye , photosensitivity denies prior hx of Migraine headache no meningeal signs afebrile cont IV hydration , pain control had recent CT head w/out contrast -was negative for pathology DEPRESSION : cont Celexa DVT PROPHYLAXIS SCD and teds , ambulate avoid antiplatelets as pt had recent LP DISPOSITION anticipated discharge home when medically stable Vital Signs: Date Time Temp Pulse Resp B/P (MAP) Pulse Ox O2 Delivery O2 Flow Rate FiO2 08/06/17 16:00 Room Air 08/06/17 15:26 36.8 68 20 137/86 (103) 97 Room Air 08/06/17 12:00 Room Air 08/06/17 11:44 36.8 82 18 138/66 (90) 96 08/06/17 08:00 Room Air 08/06/17 07:52 36.8 82 18 143/66 (91) 96 08/06/17 04:00 99 Room Air 08/06/17 03:49 37.5 98 17 123/74 (90) 93 Room Air 08/06/17 00:00 99 Room Air 08/05/17 23:40 36.9 73 18 130/68 (88) 96 Room Air 08/05/17 21:02 37.5 08/05/17 20:00 99 Room Air 08/05/17 19:34 36.9 84 22 145/85 (105) 96 Room Air 08/05/17 18:45 36.7 83 16 148/97 99 Room Air 08/05/17 18:01 77 20 122/66 97 Room Air Lab Results: Results Past 24 Hours Test 08/06/17 10:55 08/06/17 15:59 Range/Units
[2017-08-06] MEDS: LISINOPRIL 20 MG TAB PO SCH (21:25)
[2017-08-06] MEDS: TRAZODONE HCL 100 MG TAB PO SCH (21:25)
[2017-08-06] MEDS: CITALOPRAM 20 MG TAB PO SCH (21:25)
[2017-08-06] MEDS: OXYCODONE/ACETAMINOPHEN 7.5-325 TAB PO PRN (21:43)
[2017-08-07] VITALS: O2SAT 94
[2017-08-07] MEDS: OXYCODONE/ACETAMINOPHEN 7.5-325 TAB PO PRN (02:45)
[2017-08-07 04:00] VITALS: O2SAT 94
[2017-08-07] MEDS: SODIUM CHLORIDE 0.9% 1000ML 1,000 ML IV SCH (05:41)
--- NOTE | 2017-08-07 07:08 | INFECT. DISEASE CONSULTATION ---
DATE OF CONSULTATION: 08/06/2017 REQUESTING PHYSICIAN: Trinity Beckford DO HISTORY OF PRESENT ILLNESS: This is a 42-year-old gentleman who was admitted to the hospital with reported fever of 102 degrees. He has been afebrile since admission to the hospital. He did present to the Emergency Room on July and was diagnosed at that time with Lyme disease. He was placed on doxycycline, but does not feel that his symptoms are improving. He continues to complain of headaches and visual complaints with blurry vision. His parents are at the bedside during my examination. They are concerned for other illnesses. He was started on Rocephin and an LP was done in the Emergency Room. This showed only 6 white blood cells. Gram stain is negative. Cultures are pending. A Lyme CSF titer is pending as well. He is tolerating Rocephin well. He states he did not sleep well overnight secondary to a headache. He denies any arthralgias or myalgias. He denies any joint swelling. He was tolerating doxycycline well. He did eat breakfast this morning. His remaining review of systems was reviewed and unremarkable. PAST MEDICAL HISTORY: Significant for depression, hypertension and tobacco use. FAMILY HISTORY: Noncontributory. SOCIAL HISTORY: Significant for daily tobacco use. He drinks occasionally. He denies any drug use. He is and lives with his family. ALLERGIES: He has no known drug allergies. MEDICATIONS: Include Rocephin, Lovenox, Celexa, lisinopril, trazodone, doxycycline, nicotine patch, Tylenol, Zofran, morphine, Mirapex, Toradol, Fioricet. PHYSICAL EXAMINATION: VITAL SIGNS: He is afebrile and has been since admission. Pulse 82, respiratory rate 18, blood pressure 143/66. Oxygen saturation is 96%-99% on room air. GENERAL: He is awake, alert and oriented x3. He is in no acute distress. HEENT: Mucous membranes are moist. Extraocular muscles are intact. There is no nuchal rigidity. HEART: Regular. LUNGS: Clear. ABDOMEN: Soft, nontender, and nondistended. EXTREMITIES: There is no lower extremity edema. SKIN: Without rash. LABORATORY STUDIES: CBC reveals a white blood cell count of 7.3, hemoglobin 13.7 and platelets are 227. Chemistry panel reveals a sodium of 134, potassium 3.5, chloride 100, bicarbonate 32, BUN 12, creatinine 0.9. CSF showed 6 white blood cells, mildly elevated protein at 46 and a normal glucose. Cidra screen is negative. Lyme is pending. CSF culture shows rare WBCs, no organisms and cultures are pending. Chest x-ray is unremarkable. ASSESSMENT AND PLAN: Lyme disease. Certainly, he should be continued on antibiotics for this. Rocephin will be continued pending CSF studies. Per family request a plasma and ehrlichia will be checked as well. I did answer all questions. MTDD
[2017-08-07] MEDS: DOXYCYCLINE IV 100 MG in DEXTROSE 5% 100ML 100 ML IV SCH (07:41)
[2017-08-07 08:00] VITALS: BP 127/71; PULSE 83; TEMP 36.4; O2SAT 94
[2017-08-07 08:05] LABS: CALCIUM 8.4 mg/dl (8.5-10.1); CREATININE 0.83 mg/dl (0.60-1.40); POTASSIUM 3.7 mmol/L (3.5-5.1)
--- NOTE | 2017-08-07 11:12 | Progress Note ---
Subjective Date of Service: Aug 07, 2017. Subjective no overnight events. afebrile. csf culture negative to date, 6 wbc noted. on ctx and doxy. Problem List Medical Problems: (1) Headache Status: Acute (2) Lyme disease Status: Acute (3) Lyme disease Status: Acute Objective Vital Signs Date Time Temp Pulse Resp B/P (MAP) Pulse Ox O2 Delivery O2 Flow Rate FiO2 08/07/17 08:00 36.4 83 18 127/71 (89) 94 Room Air 08/07/17 08:00 Room Air 08/07/17 04:00 94 Room Air 08/07/17 00:00 94 Room Air 08/06/17 23:58 36.9 76 16 120/73 (89) 95 Room Air 08/06/17 20:00 94 Room Air 08/06/17 19:52 36.8 64 18 150/82 (104) 94 Room Air 08/06/17 19:33 36.8 68 20 97 08/06/17 16:00 Room Air 08/06/17 15:26 36.8 68 20 137/86 (103) 97 Room Air 08/06/17 12:00 Room Air 08/06/17 11:44 36.8 82 18 138/66 (90) 96 Laboratory Results Item Value Date Time Gram Stain - Final Resulted 08/05/17 1539 Cerebral Spinal Fluid Last 24 Hours Test 08/07/17 07:16 Sodium Level 134 mmol/L Potassium Level 3.7 mmol/L Chloride Level 99 mmol/L Carbon Dioxide Level 29 mmol/L Anion Gap 6.0 mmol/L Blood Urea Nitrogen 8 mg/dl Creatinine 0.83 mg/dl Est Creatinine Clear Calc Drug Dose 150.6 ml/min Estimated GFR () 124.0 Estimated GFR (Non- 107.0 BUN/Creatinine Ratio 10.0 Random Glucose 97 mg/dl Calcium Level 8.4 mg/dl Assessment and Plan (1) Lyme disease Assessment & Plan: can follow lyme titer, culture, if negative, would d/c ctx and continue doxy po as planned.
[2017-08-07] MEDS: BUTALBITAL/ACETAMIN/CAFFEINE TAB PO PRN ×2 (11:41→18:08)
--- NOTE | 2017-08-07 12:04 | Progress Note ---
Progress Note Date of Service Aug 07, 2017. Progress Note CSF CULTURE NO GROWTH IV ROCEPHIN D/MERLIN CONTINUE DOXYCYCLINE WILL NEED 3 -4 WEEKS OF TREATMENT pt been afebrile for past 48 hrs headache much improved still has generalized weakness appetite improved Exam: General-in distress, due to headache Eyes-sclera non icteric, pupillary reaction not checked as pt complains of photosensitivity ,prefers room to be dark ENT-moist oral mucosa , no sinus tenderness noted Neck-trachea midline , ,no carotid bruit Lungs-clear to auscultate ,no wheeze or rales Heart-regular S1/S2 Abdomen-soft, non tender Extremities-no lower ext edema , no calf tenderness Neuro-no focal neurological headache , persisted headache LYME DISEASE : presented with intermittent fever , myalgia, headache for past > 1 week was treated with PO Doxycycline as out pt no improvement of symptom had lumber puncture CSF shows mild elevation of protein , 6 WBC ; CSF culture negative Lyme Ig M positive PCR confirmation test sent appreciate input form ID IV Rocephin D/merlin cont PO Doxycycline for weeks HEADACHE : improved now due to acute illness, no fever IV fluid D/merlin had recent CT head w/out contrast -was negative for pathology DEPRESSION : cont Celexa DVT PROPHYLAXIS SCD and teds , ambulate avoid antiplatelets as pt had recent LP DISPOSITION possible discharge home tomorrow if headache has resolved Family given update at bedside
[2017-08-07 15:46] VITALS: BP 151/83; PULSE 80; TEMP 36.9; O2SAT 94
[2017-08-07] MEDS: DOXYCYCLINE HYCLATE 100 MG CAP PO SCH (20:50)
[2017-08-07] MEDS: CITALOPRAM 20 MG TAB PO SCH (20:51)
[2017-08-07] MEDS: TRAZODONE HCL 100 MG TAB PO SCH (20:51)
[2017-08-07] MEDS: LISINOPRIL 20 MG TAB PO SCH (20:52)
[2017-08-07 23:56] VITALS: BP 110/66; PULSE 74; TEMP 36.8; O2SAT 94
[2017-08-08] VITALS: O2SAT 94
[2017-08-08 07:52] VITALS: BP 114/72; PULSE 78; TEMP 37; O2SAT 95
[2017-08-08] MEDS: DOXYCYCLINE HYCLATE 100 MG CAP PO SCH (08:03)
--- NOTE | 2017-08-08 10:38 | Discharge Instructions ---
Discharge Instructions Date of Service Aug 08, 2017. Admission Reason for Admission: FEVER Discharge Discharge Diagnosis / Problem: LYME DISEASE Discharge Goals Goal(s): Improve function, Increase independence, Improve disease control, Diagnostic testing, Therapeutic intervention Activity Recommendations Activity Limitations: resume your previous activity . Instructions / Follow-Up Instructions / Follow-Up HOSPITAL FOLLOW UP WITH FAMILY PHYSICIAN IN A WEEK, PLEASE CALL OFFICE FOR APPOINTMENT Current Hospital Diet Patient's current hospital diet: AHA Diet (Heart Healthy) Discharge Diet Recommended Diet: Regular Diet Pending Studies Studies pending at discharge: no Medical Emergencies . Who to Call and When: Medical Emergencies: If at any time you feel your situation is an emergency, please call 911 immediately. . Non-Emergent Contact Non-Emergency issues call your: Primary Care Provider . . "Provider Documentation" section prepared by Sagie Ceron. . VTE Core Measure Inpt VTE Proph given/why not?: Italo Rousseau, SCD's
[2017-08-08 11:07] VITALS: BP 114/72; PULSE 78; TEMP 37; O2SAT 95
[2017-08-08] MEDS ORDERED: DXY100 PO (11:17)
--- NOTE | 2017-08-08 11:20 | Progress Note ---
Progress Note Date of Service Aug 08, 2017. Progress Note ATTENDING NOTE : d/w Dr Duenas ID pt will need total 30 days of Doxycycline for Lyme disease follow up with family physician for the results of the reference lab no need to follow up with ID as CSF culture is negative pt will be discharged home today
--- NOTE | 2017-08-08 18:00 | Progress Note ---
Internal Med Progress Note Date of Service: Aug 08, 2017. Provider Documentation: SUBJECTIVE: resting comfortably no headaches no fevers no pain ambulating fine ok for discharge OBJECTIVE: Vital Signs-as noted below Exam: General-alert and awake and oriented ENT-normal hearing Neck-no neck masses Lungs-cta b/l no wheezing or crackles Heart-s1 and s2 heard regular rate and rhythm no murmurs Abdomen-soft BS present non tender Extremities-no edema no erythema Neuro-alert and awake moves extremities Lab data as noted below. ASSESSMENT & PLAN: LYME DISEASE : presented with intermittent fever , myalgia, headache for past > 1 week was treated with PO Doxycycline as out pt had lumber puncture CSF shows mild elevation of protein , 6 WBC ; CSF culture negative Lyme Ig M positive PCR confirmation test sent appreciate input form ID IV Rocephin D/merlin discharged PO Doxycycline for 30days HEADACHE : improved now due to acute illness, no fever IV fluid D/merlin had recent CT head w/out contrast -was negative no complaints today DEPRESSION : cont Celexa discharged home today Vital Signs: Date Time Temp Pulse Resp B/P (MAP) Pulse Ox O2 Delivery O2 Flow Rate FiO2 08/08/17 11:07 37.0 78 18 95 Room Air 08/08/17 08:00 Room Air 08/08/17 07:52 37.0 78 18 114/72 (86) 95 Room Air 08/08/17 00:00 94 Room Air 08/07/17 23:56 36.8 74 16 110/66 (81) 94 Room Air
--- NOTE | 2017-08-08 18:14 | Discharge Summary ---
Discharge Summary Date of Service Aug 08, 2017. Discharge Summary Admission Date: Aug 05, 2017 at 17:50 Discharge Date: Aug 08, 2017 Discharge Disposition: Home Principal Diagnosis: LYME DISEASE HEADACHE Secondary Diagnoses/Problems: (1) Depression Status: Chronic (2) HTN (hypertension) Status: Chronic (3) Tobacco abuse Status: Chronic Procedures: CXR: 1. Moderate cardiomegaly without overt pulmonary edema. 2. No lobar airspace consolidation to suggest pneumonia. S/P LUMBAR PUNCTURE Consultations: ID Medication Reconciliation New Medications: Doxycycline Hyclate (Doxycycline Hyclate) 100 Mg Cap 100 MG PO BID for 30 Days, #60 CAP Continued Medications: Citalopram (Citalopram Hydrobromide) 20 Mg Tab 20 MG DAILY Ibuprofen (Motrin) 600 Mg Tab 600 MG PO Q6H PRN for Pain, TAB Lisinopril (Prinivil) 20 Mg Tab 20 MG PO HS, TAB Oxycodone/Acetaminophen 5MG/325MG (Percocet 5MG/325MG) Tab 1 TAB PO QID for Pain for 30 Days, #120 TAB PAIN Trazodone Hcl (Trazodone) 100 Mg Tab 100 MG PO HS, TAB Discontinued Medications: Doxycycline Hyclate (Vibramycin) 100 Mg Cap 100 MG PO BID for 21 Days, #42 CAP Admission Information HPI (per Admitting provider): 42 yo M who presents with 10 days of high fevers around 102F associated with severe body aches, chills, headaches and night sweats. He was seen at [facility] ER and was told he had a viral illness. Reported mono test and strep tests were negative. The patient denies any sick contacts, sore throat, coughing or SOB. He denies any travel in the last 6 months. 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 This was approx 2-3 weeks before his symptom onset. He denies any tick bites that are known. He was then seen at [facility] ER on 08/02 with the same symptoms and was found to be +for Lyme disease. He was given Rocephin 1gm and started on Doxycycline BID x 21 days. He states that his fevers and chills have not improved and he is still feeling terribly. In the ER, an LP was performed revealing minimal WBC count, gluc 57 and prot 50 with preliminary negative gram stain. Opening pressure was 25 mmHg. He was given Rocephin 2gm and the case was discussed with Dr. Delgado who reportedly recommended nothing more than this. Dr. Connor also sent off a Lyme CSF PCR and per discussions I was not a part of, the consensus between physicians was this was systemic Lyme instead of CSF Lyme. The patient denies any periods of confusion. Physical Exam (per Admitting): General Appearance: WD/WN, + mild distress Head: normocephalic, atraumatic Eyes: normal inspection, PERRL, sclerae normal ENT: hearing grossly normal, pharynx normal Neck: supple, trachea midline Respiratory/Chest: chest non-tender, lungs clear, normal breath sounds, no respiratory distress, no accessory muscle use Cardiovascular: regular rate, rhythm, no edema, no gallop, no JVD, no murmur , normal peripheral pulses Abdomen/GI: normal bowel sounds, non tender, soft, no organomegaly Back: normal inspection Extremities/Musculoskelatal: normal inspection, normal range of motion, non- tender Neurologic/Psych: no motor/sensory deficits, alert, normal mood/affect, oriented x 3, + abnormal cerebellar tests Skin: normal color, warm/dry, no rash Hospital Course LYME DISEASE : presented with intermittent fever , myalgia, headache for past > 1 week was treated with PO Doxycycline as out pt had lumber puncture CSF shows mild elevation of protein , 6 WBC ; CSF culture negative Lyme Ig M positive PCR confirmation test sent appreciate input form ID IV Rocephin D/merlin discharged PO Doxycycline for 30days HEADACHE : improved now due to acute illness, no fever IV fluid D/merlin had recent CT head w/out contrast -was negative no complaints today DEPRESSION : cont Celexa discharged home today Total time spent on discharge = 35MINUTES This includes examination of the patient, discharge planning, medication reconciliation, and communication with other providers. Discharge Instructions Discharge Instructions Date of Service Aug 08, 2017. Admission Reason for Admission: FEVER Discharge Discharge Diagnosis / Problem: LYME DISEASE Discharge Goals Goal(s): Improve function, Increase independence, Improve disease control, Diagnostic testing, Therapeutic intervention Activity Recommendations Activity Limitations: resume your previous activity . Instructions / Follow-Up Instructions / Follow-Up HOSPITAL FOLLOW UP WITH FAMILY PHYSICIAN IN A WEEK, PLEASE CALL OFFICE FOR APPOINTMENT Current Hospital Diet Patient's current hospital diet: AHA Diet (Heart Healthy) Discharge Diet Recommended Diet: Regular Diet Pending Studies Studies pending at discharge: no Medical Emergencies . Who to Call and When: Medical Emergencies: If at any time you feel your situation is an emergency, please call 911 immediately. . Non-Emergent Contact Non-Emergency issues call your: Primary Care Provider . . "Provider Documentation" section prepared by Saige Ceron. . VTE Core Measure Inpt VTE Proph given/why not?: Italo Rousseau, SCD's Additional Copies To Preet Cox PA-C
[2017-08-09 15:37] LABS: LYME DNA PCR CSF OR SYNOVIAL Not detected (Not Detected); LYME DNA SOURCE CSF
[2017-08-09 19:30] LABS: ANAPLASMA PHAGOCYTOPHIL IGG <1:64 (<1:64); ANAPLASMA PHAGOCYTOPHIL IGM <1:20 (<1:20); EHRLICHIA CHAFF IGG AB <1:64 (<1:64); EHRLICHIA CHAFF IGM AB <1:20 (<1:20)
== END 2017-08-08 13:45 | disposition home or self-care (01) | DRG 869 ==
LOC: C.EDB 13:09 → EDBEDREQ 17:47 → C.2T 17:50 → EDBEDREQ 17:52 → ENRESERV 18:03 → C.MED 08-06 19:38
PROVIDERS: ADMIT Hospitalist; ATTEND Internal Medicine
PROC: 009U3ZZ Drainage of Spinal Canal, Percutaneous Approach (ICD-10-PCS; principal; 2017-08-05)
DX: A69.20 Lyme disease, unspecified (principal); F32.9 Major depressive disorder, single episode, unspecified; I10 Essential (primary) hypertension; F41.9 Anxiety disorder, unspecified; F17.200 Nicotine dependence, unspecified, uncomplicated